=== PATIENT | female | born 1980 | race Two or more races ===

== ENCOUNTER 2019-09-18 03:08 | Emergency (ER) | payer MEDICAID, OTHER ==
[~2019-09-18] VITALS: Ht 165.1 cm; Wt 113.4 kg
[2019-09-18 03:48] LABS: Basophils # (auto) 0.1 uL; Basophils % (auto) 0.7 % (0.0-2.0); Eosinophils # (auto) 0.6 uL; Eosinophils % (auto) 6.1 % (0.0-7.0); Hematocrit 39.1 % (36.0-46.0); Hemoglobin 13.4 g/dL (12.2-16.2); Lymphocytes # (auto) 3.4 uL; Lymphocytes % (auto) 34.4 % (10.0-50.0); Mean Corpuscular Hemoglobin 31.8 pg (28.0-32.0); Mean Corpuscular Hgb Conc. 34.3 g/dL (32.0-36.0); Mean Corpuscular Volume 92.8 fL (80.0-100.0); Monocytes # (auto) 0.5 uL; Monocytes % (auto) 5.3 % (0.0-12.0); Neutrophils # (auto) 5.3 uL; Neutrophils % (auto) 53.5 % (37.0-80.0); Platelet Count (auto) 249 10^3/uL (140-450); Red Blood Cells 4.21 10^6/uL (4.0-5.20); Red Cell Distribution Width 14.2 % (11.8-14.3); White Blood Cell 9.9 10^3/uL (4.4-10.8)
[2019-09-18 04:03] LABS: Salicylate < 1.7 mg/dL (2.8-20.0)
[2019-09-18 04:05] LABS: Albumin 3.5 g/dL (3.4-5.0); Calcium 8.6 mg/dL (8.5-10.1); Magnesium 2.3 mg/dL (1.6-2.6); Potassium 3.3 mmol/L (3.5-5.1)
[2019-09-18 04:06] LABS: Acetaminophen < 2.0 ug/mL (10-30)
[2019-09-18 04:08] LABS: BUN/Creatinine Ratio 26.9; Bilirubin, Total 0.2 mg/dL (0.2-1.0); Total Protein 7.8 g/dL (6.4-8.2)
[2019-09-18] MEDS ORDERED: SODIUM CHLORIDE 0.9% 1,000 ML IV ONE (04:30)
[2019-09-18 07:42] VITALS: BP 142/80
[2019-09-18 10:05] LABS: Urine Bacteria NONE SEEN /hpf (None Seen); Urine Blood 2+ /uL (Negative); Urine Specific Gravity 1.016 (1.001-1.035); Urine WBC 22 /hpf (0 - 5)
[2019-09-18 10:17] LABS: Amphetamine Screen, Urine NEGATIVE (NEGATIVE); Barbiturate Scree,Urine NEGATIVE (NEGATIVE); Benzodiazephine Screen, Urine NEGATIVE (NEGATIVE); Cannabinoid Screen, Urine NEGATIVE (NEGATIVE); Cocaine Screen, Urine NEGATIVE (NEGATIVE); Opiate Scree,Urine NEGATIVE (NEGATIVE); Phencyclidine Screen, Urine NEGATIVE (NEGATIVE)
== END 2019-09-18 09:13 | disposition left against medical advice (07) ==
LOC: ER 03:08 → EDBD 03:08 → ER 09:13
DX: F10.129 Alcohol abuse with intoxication, unspecified (principal); R11.2 Nausea with vomiting, unspecified; I10 Essential (primary) hypertension; Y90.9 Presence of alcohol in blood, level not specified
CPT/HCPCS: 36415; 80053; 80307; 80320; 80329; 81001; 83735; 85025; 96360; 99283; J7030